=== PATIENT | male | born 1975 | race Caucasian/White ===

== ENCOUNTER 2018-05-18 15:42 | Emergency (ER) | payer OTHER ==
[~2018-05-18] VITALS: Ht 175.3 cm; Wt 54.4 kg
[2018-05-18 15:44] VITALS: Ht 175.3 cm; Wt 54.4 kg
[2018-05-18 17:21] VITALS: BP 126/88
== END 2018-05-18 17:21 | disposition other institution (70) ==
LOC: ED 15:42
DX: G89.29 Other chronic pain (principal); M25.511 Pain in right shoulder; F17.210 Nicotine dependence, cigarettes, uncomplicated

== ENCOUNTER 2018-05-18 15:42 | Emergency (ER) | payer OTHER | END 2018-05-18 17:21 | disposition other institution (70) | LOC: ED 15:42 | DX: Z02.89 Encounter for other administrative examinations (principal) ==